=== PATIENT | male | born 1965 | race Caucasian/White ===

== ENCOUNTER → 2022-10-01 14:47 | Outpatient (BNVA) | payer BC, SELFPAY | PROVIDERS: Visit Provider Orthopaedic Surgery | DX: M25.511 Pain in right shoulder (principal) | CPT/HCPCS: 73030 ==

== ENCOUNTER 2022-10-03 06:00 | Outpatient (RCR) | payer BC, SELFPAY | END 2022-11-01 23:59 | disposition home or self-care (01) | LOC: TPT 06:00 | PROVIDERS: Visit Provider Orthopaedic Surgery | DX: M24.511 Contracture, right shoulder (principal) | CPT/HCPCS: 97110; 97140; 97162 ==

== ENCOUNTER 2022-11-02 06:00 | Outpatient (RCR) | payer BC, SELFPAY | END 2022-12-02 23:59 | disposition home or self-care (01) | LOC: TPT 06:00 | PROVIDERS: Visit Provider Orthopaedic Surgery | DX: M24.511 Contracture, right shoulder (principal) | CPT/HCPCS: 97110; 97140 ==